=== PATIENT | male | born 1955 | race Caucasian/White ===

== ENCOUNTER 2016-05-19 11:15 | Emergency (ER) | payer MEDICARE ==
[~2016-05-19] VITALS: Ht 170.2 cm; Wt 68.1 kg
[2016-05-19] MEDS ORDERED: BENADRYL 50MG C50 MG PO (12:25)
[2016-05-19 12:33] LABS: URINE BILIRUBIN - DIPSTICK NEGATIVE (NEGATIVE); URINE BLOOD DIPSTICK MODERATE (NEGATIVE); URINE COLOR YELLOW; URINE GLUCOSE - DIPSTICK NEGATIVE (NEGATIVE); URINE KETONE NEGATIVE (NEGATIVE); URINE LEUK ESTERASE NEGATIVE (NEGATIVE); URINE NITRITE - DIPSTICK NEGATIVE (Negative); URINE PH 6.5 (4.5-8.0); URINE PROTEIN - DIPSTICK NEGATIVE (NEG-TRACE); URINE SPECIFIC GRAVITY 1.015; URINE UROBILINOGEN - DIPSTICK 0.2 E.U./dL (0.2)
[2016-05-19 12:42] LABS: URINE CLARITY SLIGHT CLOUDY
[2016-05-19] MEDS ORDERED: MELOXICAM15 MG PO (12:43)
[2016-05-19] MEDS ORDERED: WELLBUTRIN SR150 MG PO (12:44)
[2016-05-19] MEDS ORDERED: HYDROXYZ PAM25 MG PO (12:45)
[2016-05-19] MEDS ORDERED: GABAPENTIN300 MG PO (12:46)
[2016-05-19] MEDS ORDERED: MAGNESIUM250 M2 PO (12:46)
[2016-05-19] MEDS ORDERED: TRAZODONE50 MG PO (12:47)
[2016-05-19] MEDS ORDERED: METOPROL TAR25 MG PO (12:47)
[2016-05-19] MEDS ORDERED: LITHIUM CARB300 MG PO (12:48)
[2016-05-19 13:00] VITALS: BP 140/75
== END 2016-05-19 13:00 | disposition home or self-care (01) ==
LOC: ED 11:15
PROVIDERS: Emergency Medicine
DX: S30.862A Insect bite (nonvenomous) of penis, initial encounter (principal); W57.XXXA Bitten or stung by nonvenomous insect and other nonvenomous arthropods, initial encounter; R22.9 Localized swelling, mass and lump, unspecified

== ENCOUNTER 2016-06-06 21:22 | Emergency (ER) | payer MEDICARE ==
[~2016-06-06] VITALS: Ht 170.2 cm; Wt 65.0 kg
[~2016-06-06 21:22] MED LIST: BENADRYL 50MG C50 MG PO; GABAPENTIN300 MG PO; HYDROXYZ PAM25 MG PO; LITHIUM CARB300 MG PO; MAGNESIUM250 M2 PO; MELOXICAM15 MG PO; METOPROL TAR25 MG PO; TRAZODONE50 MG PO; WELLBUTRIN SR150 MG PO
[2016-06-06] MEDS ORDERED: BENADRYL 50MG C50 MG PO (22:08)
[2016-06-06 22:22] VITALS: BP 145/76
== END 2016-06-06 22:22 | disposition home or self-care (01) ==
LOC: ED 21:22
DX: L25.9 Unspecified contact dermatitis, unspecified cause (principal); I10 Essential (primary) hypertension; G62.9 Polyneuropathy, unspecified; F32.9 Major depressive disorder, single episode, unspecified; M19.90 Unspecified osteoarthritis, unspecified site; I25.10 Atherosclerotic heart disease of native coronary artery without angina pectoris; Z95.5 Presence of coronary angioplasty implant and graft